=== PATIENT | female | born 1980 | race Caucasian/White ===

== ENCOUNTER → 2022-04-29 | Outpatient (CLI) | payer OTHER ==
[2022-04-30 10:38] LABS: Candida species (DNA Probe) Negative (NEGATIVE); G. vaginalis (DNA Probe) Negative (NEGATIVE); T. vaginalis (DNA Probe) Negative (NEGATIVE)
[2022-05-01 04:10] LABS: CHLAMYDIA TRACHOMATIS, NAA Negative (Negative)
== END | disposition home or self-care (01) ==
LOC: LAB 17:32 → LAB SHORT 17:32
PROVIDERS: Nurse Practitioner Family
DX: R10.32 Left lower quadrant pain (principal)
CPT/HCPCS: 87480; 87491; 87510; 87591; 87660

== ENCOUNTER → 2022-07-23 | Outpatient (CLI) | payer OTHER ==
[2022-07-25 15:12] LABS: HPV 16 Negative (Negative); HPV 18 Negative (Negative); HPV OTHER HR TYPES Negative (Negative)
== END | disposition home or self-care (01) ==
LOC: LAB SHORT 10:07 → LAB 10:07
PROVIDERS: Family Medicine
DX: Z01.419 Encounter for gynecological examination (general) (routine) without abnormal findings (principal)
CPT/HCPCS: 87624; G0145

== ENCOUNTER 2023-02-15 18:57 | Emergency (ER) | payer OTHER ==
[~2023-02-15] VITALS: Ht 165.1 cm; Wt 89.8 kg
[2023-02-15 19:06] VITALS: BP 138/102
== END 2023-02-15 19:58 | disposition home or self-care (01) ==
LOC: ER 18:57
DX: R68.84 Jaw pain (principal); Z98.890 Other specified postprocedural states
CPT/HCPCS: 99282

== ENCOUNTER → 2024-03-09 | Outpatient (CLI) | payer OTHER ==
[~2024-03-09] MED LIST: ACET500 PO; ALBU90OI; DESV50 PO; ERGO400 PO; FLUT.05NI; OXYC5 PO; REXULTI0.5 MG PO; SELENIOUS40 MCG/1 M PO; TIZA4 PO; TOPI50 PO; VITAMIN B COMP0.4 MG PO
== END | disposition home or self-care (01) ==
LOC: LAB SHORT 18:13 → LAB 18:13
DX: N39.46 Mixed incontinence (principal)
CPT/HCPCS: 87086